=== PATIENT | female | born 1950 | race Caucasian/White ===

== ENCOUNTER 2021-11-18 07:54 | Emergency (ER) | payer MEDICARE ==
[2021-11-18] MEDS ORDERED: BACTROBAN OINT22 GM EXT (08:21)
== END 2021-11-18 09:15 | disposition home or self-care (01) ==
LOC: ER1 07:54
DX: R58 Hemorrhage, not elsewhere classified (principal); I10 Essential (primary) hypertension
CPT/HCPCS: 99283